=== PATIENT | male | born 1970 | race Caucasian/White ===

== ENCOUNTER → 2023-12-14 | Outpatient (CLI) | payer OTHER ==
[~2023-12-14] MED LIST: Albuterol 0.083% Neb Soln 2.5 MG/3 ML UD IH ONE
== END ==
LOC: COL.CARD 13:45
DX: R06.02 Shortness of breath (principal)

== ENCOUNTER → 2023-12-17 | Outpatient (CLI) | payer OTHER | LOC: COL.CARD 13:43 | DX: R06.02 Shortness of breath (principal) | CPT/HCPCS: J7674 ==